=== PATIENT | female | born 1975 | race Caucasian/White ===

== ENCOUNTER 2016-12-26 12:12 | Inpatient (IN) ==
[2016-12-26] MEDS ORDERED: 0.9 % Sodium Chloride 1,000 ML IVC ONE ×3 (12:46→17:44)
[2016-12-26] MEDS ORDERED: Ondansetron 4 MG/2 ML VIAL IVP ONE (12:48)
[2016-12-26 13:01] LABS: Hematocrit 41.8 % (35.3-44.9); Hemoglobin 13.2 g/dL (11.5-15.4); Mean Corpuscular HGB Conc 31.6 g/dL (31.6-35.5); Mean Corpuscular Hemoglobin 28.4 pg (28.0-33.3); Mean Corpuscular Volume 90.1 fL (83.0-100.0); Mean Platelet Volume 10.1 fL (9.4-12.4); Platelet Count 237 K/mcL (140-400); Red Blood Count 4.64 M/mcL (3.82-4.97); Red Cell Distribution Width 15.3 % (11.5-14.5)
--- NOTE | 2016-12-26 13:15 | Emergency Department Note ---
Disposition Clinical Impression: Lactate blood increase Abdominal pain Qualifiers: Abdominal location: generalized Qualified Code(s): R10.84 - Generalized abdominal pain Vomiting Qualifiers: Vomiting type: unspecified Vomiting Intractability: non-intractable Nausea presence: with nausea Qualified Code(s): R11.2 - Nausea with vomiting, unspecified Disposition: Admitted As Inpatient Nausea/Vomiting/Diarrhea HPI - General Chief complaint: ED Nausea/Vomiting/Diarrhea Stated complaint: vomiting/dehydration Time Seen by Provider: 12/26/16 12:17 Source: EMS Limitations: no limitations Nursing Notes Reviewed: Yes Vital Signs Reviewed: Yes - History of Present Illness HPI Narrative: Patient has a history of [place] - is confined to bed presents with 1-1/2 weeks of vomiting and diarrhea and generalized abdominal pain which is a pressure sensation and it is constant. Does have urinary frequency but no dysuria. Temperature yesterday 101.9 degrees. No vaginal bleeding or discharge , blood in the urine or stool. Mild cough. No blurred vision or rhinorrhea or sneezing and does have generalized numbness and pain to the extremities but this is not new. No skin rash or bruising of the skin. No new pain or numbness of extremities. Social history: No smoking - Related Data Home Medications Medication Instructions Recorded Confirmed Pregabalin [Lyrica] 150 mg PO TID 01/03/16 12/26/16 Quetiapine Fumarate [Seroquel] 600 mg PO HS 01/03/16 12/26/16 Umeclidinium [place] [Incruse 1 puff IH DAILY 01/05/16 12/26/16 Ellipta] [place] Carbonate 600 mg PO TID 01/17/16 12/26/16 Atorvastatin [Lipitor] 40 mg PO HS 12/26/16 12/26/16 BuPROPion XL (24 HR) [Wellbutrin 450 mg PO DAILY 12/26/16 12/26/16 XL] Budesonide/Formoterol 160/4.5 2 puff IH BIDR 12/26/16 12/26/16 [Symbicort 160/4.5] Buspirone HCl [Buspar] 15 mg PO QID 12/26/16 12/26/16 Furosemide [Lasix] 20 mg PO DAILY 12/26/16 12/26/16 Gentamicin Sulfate 1 drop LEFT EYE Q4H 12/26/16 Ipratropium/Albuterol Sulfate 1 puff IH QID 12/26/16 12/26/16 [Combivent Respimat Inhal [place]] Mycophenolate Mofetil [Cellcept] 1,000 mg PO BID 12/26/16 12/26/16 Nystatin POWDER [Nystop] 1 appl TP BID 12/26/16 12/26/16 lamoTRIgine [Lamictal] 100 mg PO QAM 12/26/16 12/26/16 lamoTRIgine [Lamictal] 200 mg PO HS 12/26/16 12/26/16 Previous Rx's Medication Instructions Recorded Ranitidine HCl [Zantac] 150 mg PO BID #60 tablet 01/06/16 HYDROcodone/Acet 10/325 mg [[place] 1 tab PO Q6HR PRN #240 tablet 01/19/16 10-325 mg] Allergies Allergy/AdvReac Type Severity Reaction Status Date / Time cephalexin [From Keflex] Allergy Hives Verified 01/03/16 15:45 divalproex sodium Allergy Hives Verified 01/03/16 15:45 [From Depakote] ibuprofen Allergy Hives Verified 01/03/16 15:45 Review of Systems: Constitutional: No fever Vision: No blurred vision ENT: No rhinorrhea Respiratory: + cough Allergic: No allergies : No blood in urine GI: No blood in stool Hematologic: No bruising Dermatologic: No skin rash Musculoskeletal: No new pain in the extremities Neuro: No new numbness of the extremities Past Medical History - Past Medical History Medical history: Reports: COPD, myocardial infarction, other Surgical history: Reports: Psychiatric history: Reports: anxiety, bipolar, depression 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 EYES: PERRL, no scleral icterus. NOSE: The nose is normal in appearance without rhinorrhea RESP: Normal chest excursion with respiration; breath sounds clear and equal bilaterally; no wheezes, rhonchi, or rales CARD: Regular rhythm, without murmurs, rub or gallop ABD: Non-distended; there is mild generalized abdominal discomfort, abdomen is normal appearance, the entire abdomen is soft,without rigidity, rebound or guarding SKIN: Normal for age and race; warm and dry; no apparent lesions Back: No sacral decubiti - General Limitations: no limitations General appearance: alert, in no apparent distress Course Vital Signs Temperature 98.4 F 12/26/16 12:33 Pulse Rate 76 12/26/16 12:33 Respiratory Rate 18 12/26/16 12:33 Blood Pressure 142/64 12/26/16 12:33 O2 Sat by Pulse Oximetry 93 12/26/16 12:33 Temperature 98.1 F 12/26/16 19:10 Pulse Rate 76 12/26/16 19:10 Respiratory Rate 18 12/26/16 21:20 Blood Pressure 114/69 12/26/16 19:10 O2 Sat by Pulse Oximetry 98 12/26/16 21:20 Oxygen Delivery Oxygen Delivery Room Air Nausea/Vomiting/Diarrhea - MDM Narrative Medical decision making narrative: Labs including LFTs and lipase, CT scan, IV fluids, IV Zofran, lactate level. Results pending. 1317 I did review the patient's test results. Lactate significantly elevated. The patient is chronically debilitated and in addition does have a temperature 101.9 degrees so the concern is for possible sepsis. The patient started on Zosyn and vancomycin. She does not have septic shock. She is not hypotensive. I did speak with the hospitalist Dr. Almeida who accepts the patient for admission. 1535 - Lab Data Result diagrams: 12/26/16 12:54 12/26/16 12:54 Lab Results 12/26/16 12/26/16 12/26/16 Range/Units 12:54 12:54 12:54 WBC 9.8 (4.3-11.1) K/mcL RBC 4.64 (3.82-4.97) M/mcL Hgb 13.2 (11.5-15.4) g/dL Hct 41.8 (35.3-44.9) % MCV 90.1 (83.0-100.0) fL MCH 28.4 (28.0-33.3) pg MCHC 31.6 (31.6-35.5) g/dL RDW 15.3 H (11.5-14.5) % Plt Count 237 (140-400) K/mcL MPV 10.1 (9.4-12.4) fL Sodium 144 (136-145) mEq/L Potassium 3.2 L (3.5-4.5) mEq/L Chloride 107 (98-109) mEq/L Carbon Dioxide 25 (19-29) mEq/L BUN 2 L (7-20) mg/dL Creatinine 0.59 (0.57-1.11) mg/dL Est GFR ( Amer) > 60 (> 60) Est GFR (Non-Af Amer) > 60 (> 60) BUN/Creatinine Ratio 3 L (6-26) Glucose 92 (70-99) mg/dL Calculated Osmolality 294 (280-300) Lactic Acid 4.0 H* (0.5-2.2) mmol/L Calcium 9.6 (8.6-10.8) mg/dL Total Bilirubin 0.5 (0.2-1.2) mg/dL Direct Bilirubin 0.3 (0.0-0.5) mg/dL Indirect Bilirubin 0.2 (0.0-1.2) mg/dL AST 33 (5-34) Units/L ALT 18 (0-55) Units/L Alkaline Phosphatase 127 H (38-126) Units/L Creatine Kinase 16 L (29-168) Units/L Serum Total Protein 5.5 L (6.0-8.3) g/dL Albumin 3.0 L (3.5-5.0) g/dL Globulin 2.5 (2.4-3.5) g/dL Albumin/Globulin Ratio 1.2 (1.1-2.2) Lipase 7 L (8-78) Units/L
[2016-12-26 13:17] LABS: BUN/Creatinine Ratio 3 (6-26); Calcium 9.6 mg/dL (8.6-10.8); Carbon Dioxide 25 mEq/L (19-29); Chloride 107 mEq/L (98-109); Glucose 92 mg/dL (70-99); Osmolality,Calculated 294 (280-300); Potassium 3.2 mEq/L (3.5-4.5); Sodium 144 mEq/L (136-145); eGFR For African Americans > 60 (> 60); eGFR For Non-African Americans > 60 (> 60)
[2016-12-26 13:19] LABS: Blood Urea Nitrogen 2 mg/dL (7-20)
[2016-12-26 13:45] LABS: Alanine Aminotransferase 18 Units/L (0-55); Albumin/Globulin Ratio 1.2 (1.1-2.2); Alkaline Phosphatase 127 Units/L (38-126); Aspartate Amino Transferase 33 Units/L (5-34); Bilirubin,Direct 0.3 mg/dL (0.0-0.5); Bilirubin,Indirect 0.2 mg/dL (0.0-1.2); Bilirubin,Total 0.5 mg/dL (0.2-1.2); Globulin 2.5 g/dL (2.4-3.5); Lipase 7 Units/L (8-78); Total Protein 5.5 g/dL (6.0-8.3)
[2016-12-26] MEDS ORDERED: Potassium Chloride 20 MEQ, Lidocaine 1% 2 ML in D5% in Water 250 ML IVPB ONE (14:08)
[2016-12-26] MEDS ORDERED: Vancomycin 2,000 MG in D5% in Water 500 ML IVPB ONE (15:27)
[2016-12-26] MEDS ORDERED: Piperacillin/Tazobactam 4.5 GM in D5% in Water (Mini-Bag+) 100 ML IVPB ONE (15:27)
[2016-12-26 16:02] LABS: Creatine Kinase 16 Units/L (29-168)
[2016-12-26] MEDS ORDERED: Naloxone 0.4 MG/ML INJ IVP PRN (16:02)
--- NOTE | 2016-12-26 16:19 | Internal Med History&Physical ---
<Penelope Mcnamara Venkat - Last Filed: 12/26/16 16:39> Date of Encounter: 12/26/16 Time of Encounter: 16:17 Assessment and Plan (1) Lactic acidosis Current visit: Yes Status: Acute Lactic acid 4 in the ED, etiology unknown at this time. She does report subjective fever Tmax 101.8 at home. Afebrile in the ED no elevated white count. Does not appear acute or toxic. ABD CT with marked hepatic steatosis and moderate hepatomegaly. Vanco and Zosyn given in the ED. De-escalate to Vanco only. Has PICC in place since 04/2016 for IVIG treatments, remove PICC and reassess need for reinsertion before discharge. Follow cx's and narrow/de- escalate ATB as able. Blood, urine cx, stool for diff and CXR (2) Hypokalemia Current visit: No Status: Resolved K 3.2, replaced in ED. Monitor repeat CMP (3) Nonalcoholic hepatosteatosis Current visit: Yes Status: Acute ABD CT with marked hepatic steatosis and moderate hepatomegaly. Alkaline phosphatase minimally elevated, LFTs within normal limits. 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 Follows with [facility] but in the process of transferring care to Dr. Valdes. Last IVIG treatment 3 weeks ago. Remove possible infectious source. Re-evaluate need for replacement prior to discharge. Will need to ensure negative blood cx' s. Supportive care (5) Bipolar 1 disorder Current visit: No Status: Chronic Per history. Symptoms stable with current medications. Continue home regimen. (6) HLD (hyperlipidemia) Current visit: Yes Status: Acute Continue home statin Qualifiers: Hyperlipidemia type: pure hypercholesterolemia Qualified Code(s): E78.00 - Pure hypercholesterolemia, unspecified; E78.0 - Pure hypercholesterolemia (7) DVT prophylaxis Current visit: Yes Status: Acute Heparin Internal Medicine - H&P: HPI Chief complaint: abdominal pain Admitted From: Home Plans for Post Hospital Care: Home History of present illness: Ms. Richardson is a 41 year old female with PMH Guillain Leverett, CAD, hyperlipidemia who presented to [facility] on 12/26[facility]2016 with complaints of abdominal pain and nausea vomiting diarrhea and inability to tolerate by mouth. She was found to have lactic acid of 4 and was admitted for IV fluids and further workup and treatment. Information obtained from chart review and patient report. Patient reports she has been having intermittent abdominal pain with nausea vomiting diarrhea for the past week and a half. Says she is unable to keep anything down. She describes abdominal pain as a severe tightness into her entire abdomen nothing seems to make better or worse she is also had intermittent loose stool the past week and half as well. Had subjective fever of 101.8 yesterday at home. Last IVIG treatment was 3 weeks ago. She has had a PICC in place since 04/2016. No chest pain or shortness of breath. Past Med Surg Social Fam HX - Past Medical History Medical history: COPD, myocardial infarction, other Psychiatric history: anxiety, bipolar, depression - Past Surgical History Surgical History: - Social History Smoking Status: Former smoker Smokeless Tobacco Status: No Alcohol use: none Drug use: none - Family History Mother Adopted: No Living Status: Still Living Hx Family Cardiac Disorders: Yes (CHF) Hx Family Respiratory Disorders: Yes (COPD) Hx Family Cancer: Yes (Mothers father had lung and liver cancer) Hx Family GI Disorders: No Hx Family Endocrine Disorder: No Hx Family Neuromuscular Disorders: Yes (Benign nuerologial tremors) Hx Family Neurologic Disorders: No Hx Family HEENT Disorders: Yes (migraines) Hx Family Autoimmune Disorders: No Father Living Status: Hx Family Endocrine Disorder: Yes (DM) Internal Medicine - H&P: Meds Pregabalin [Lyrica] 150 mg PO TID 01/03/16 [History] Quetiapine Fumarate [Seroquel] 600 mg PO HS 01/03/16 [History] Umeclidinium [place] [Incruse Ellipta] 1 puff IH DAILY 01/05/16 [History] Ranitidine HCl [Zantac] 150 mg PO BID #60 tablet 01/06/16 [Rx] [place] Carbonate 600 mg PO TID 01/17/16 [History] HYDROcodone/Acet 10/325 mg [[place] 10-325 mg] 1 tab PO Q6HR PRN #240 tablet 01/18 [Rx] Atorvastatin [Lipitor] 40 mg PO HS 12/26/16 [History] BuPROPion XL (24 HR) [Wellbutrin XL] 450 mg PO DAILY 12/26/16 [History] Budesonide/Formoterol 160/4.5 [Symbicort 160/4.5] 2 puff IH BIDR 12/26/16 [ History] Buspirone HCl [Buspar] 15 mg PO QID 12/26/16 [History] Furosemide [Lasix] 20 mg PO DAILY 12/26/16 [History] Gentamicin Sulfate 1 drop LEFT EYE Q4H 12/26/16 [History] Ipratropium/Albuterol Sulfate [Combivent Respimat Inhal [place]] 1 puff IH QID [History] Mycophenolate Mofetil [Cellcept] 1,000 mg PO BID 12/26/16 [History] Nystatin POWDER [Nystop] 1 appl TP BID 12/26/16 [History] lamoTRIgine [Lamictal] 100 mg PO QAM 12/26/16 [History] lamoTRIgine [Lamictal] 200 mg PO HS 12/26/16 [History] Allergies cephalexin [From Keflex] Allergy (Verified 01/03/16 15:45) Hives divalproex sodium [From Depakote] Allergy (Verified 01/03/16 15:45) Hives ibuprofen Allergy (Verified 01/03/16 15:45) Hives All Systems PM: A 10-system review of systems was performed and is negative for pertinent findings except as documented above in the HPI. - Constitutional Constitutional: fever(s), no chills, no night sweats - EENT Eyes: no change in vision, no discharge, no pain, no photophobia Ears: no ear discharge, no ear pain, no tinnitus Nose, mouth and throat: no dysphagia, no nasal discharge, no neck pain, no sore throat - Cardiovascular Cardiovascular ROS IM: no chest pain, no diaphoresis, no dyspnea, no lightheadedness, no palpitations, no syncope - Respiratory Respiratory: no cough, no dyspnea, no wheezing, no excessive phlegm production - Gastrointestinal Gastrointestinal: abdominal pain, no diarrhea, no hematemesis, no hematochezia, no melena, no nausea, no vomiting - Genitourinary Genitourinary: no change in urinary stream, no dysuria, no flank pain, no hematuria - Musculoskeletal Musculoskeletal ROS IM: joint swelling, limited range of motion, no numbness, no tingling - Integumentary Integumentary IM: no rash, no unusual bruising - Neurological Neurological ROS: no confusion, no convulsions, no focal weakness, no numbness, no tingling, no tremor(s) Additional comments: Does not ambulate, wheelchair or bedbound - Hematologic/Lymphatic Hematologic/Lymphatic: no easy bruising - Constitutional Vitals: Temp Pulse Resp BP Pulse Ox 98.4 F 74 18 117/66 98 12/26/16 12:33 12/26/16 15:26 12/26/16 15:26 12/26/16 15:26 12/26/16 15:26 General appearance: Present: A&O X 3 - Head Head exam: Present: atraumatic, normocephalic - Eye Eye exam: Present: PERRL, conjuntiva pink, sclera anicteric Pupils: Present: PERRL - Neck Neck exam general surgery: Present: supple, trachea midline. Absent: lymphadenopathy - Respiratory Respiratory exam: Present: CTAB. Absent: accessory muscle use, rales, rhonchi, wheezes - Cardiovascular Cardiovascular exam: Present: RRR, +S1, +S2. Absent: diastolic murmur, gallop, rubs, systolic murmur - GI/Abdominal GI/Abdominal exam: Present: normal bowel sounds, soft, no peritoneal signs. Absent: distended, tenderness Additional comments: mild ABD tenderness - Extremities Exam Extremities exam: Present: pedal edema, warm, radial pulses palpable and symetrical. Absent: calf tenderness, cyanotic Additional comments: mild erythema, warmth and tenderness - Neurological Exam Neurological exam: Present: CN II-XII intact, oriented X3, no focal deficits. Absent: pronater drift, facial droop, speech deficit - Skin Skin exam: Present: dry, intact Internal Med - H&P Results - Labs CBC & Chem 7: 12/26/16 12:54 12/26/16 12:54 <Asif Almeida - Last Filed: 12/26/16 18:15> Date of Encounter: 12/26/16 Time of Encounter: 17:30 Internal Medicine - H&P: HPI History of present illness: Ms. Richardson is a 41 year old female All Systems PM: A 10-system review of systems was performed and is negative for pertinent findings except as documented above in the HPI. - Constitutional Vitals: Temp Pulse Resp BP Pulse Ox 98.4 F 74 16 123/72 98 12/26/16 12:33 12/26/16 15:26 12/26/16 16:59 12/26/16 16:59 12/26/16 15:26 Internal Med - H&P Results - Labs CBC & Chem 7: 12/26/16 12:54 12/26/16 12:54 - Impressions ITS Impressions Chest X-Ray 12/26/16 16:50 IMPRESSION: No acute abnormality D/ / Abner Taylor / Abner Taylor Interpreting Provider: Abner Taylor - Attending Attestation I examined this patient and my medical decision-making was reviewed with the nurse practitioner. I agree with the documented history of present illness, review of systems, past medical, surgical social and family histories and examination findings, disposition and treatment plan as described above except to any changes set forth below. 41-year-old female patient with history of Guillain-Leverett who has been receiving IVIG through the left upper extremity PICC line presented to the ER with complaints of fever, nausea and vomiting. She had an episode of fever with temperature 101.8 yesterday. She has been having episodes of fever for several weeks now intermittently. Also complains of abdominal bloating and distention. No cough or shortness of breath. No dysuria. On examination, patient is awake and alert. Heart sounds and lung sounds are within normal limits. Abdomen is soft, nontender. Blood work shows elevated lactic acid levels. CT of the abdomen and pelvis shows steatohepatitis without any ascites. WBC count is normal. Chest x-ray does not show any infiltrate. Fever: Unclear etiology. Patient's temperature has been normal here. Given that she has an elevated lactate, with the presence of a PICC line, there is a risk of line infection. Will treat with empiric antibiotics while awaiting cultures. Lactic acidosis: Likely could be related to dehydration with nausea and vomiting in the presence of steatohepatitis. We will trend. IV hydration. 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 We will check levels. Continue CellCept. Bipolar disorder: Continue lithium. Hypokalemia: We will replace.
[2016-12-26] MEDS: *HR* HYDROcodone/Acet 10/325 mg TABLET PO PRN (18:04)
[2016-12-26] MEDS: Ondansetron 4 MG/2 ML VIAL IVP PRN (18:08)
[2016-12-26] MEDS: 0.9 % Sodium Chloride 1,000 ML IVC SCH (18:11)
[2016-12-26] MEDS: IPRATROPIUM IH SCH (18:12)
[2016-12-26] MEDS: ALBUTEROL SULFATE IH SCH (18:12)
[2016-12-26] MEDS ORDERED: *HR* Morphine 2 MG/ML SYRINGE IVP ONE (18:59)
[2016-12-26] MEDS: Budesonide/Formoterol 160/4.5 MDI IH SCH (21:18)
[2016-12-26 21:20] LABS: Bilirubin,Urine Negative (Negative); Blood,Urine Negative (Negative); Clarity,Urine Clear (Clear); Color,Urine Yellow (Yellow); Glucose,Urine (UA) Normal (Normal); Ketones,Urine Negative (Negative); Leukocyte Esterase,Urine Negative (Negative); Nitrite,Urine Negative (Negative); Protein,Urine Negative (Neg-Trace); Specific Gravity,Urine 1.009 (1.010-1.025); Urobilinogen,Urine Normal (Normal)
[2016-12-26] MEDS: Pregabalin 75 MG CAPSULE PO SCH ×2 (21:33→21:50)
[2016-12-26] MEDS: lamoTRIgine 100 MG TABLET PO SCH (21:34)
[2016-12-26] MEDS: Lithium Carbonate 300 MG CAPSULE PO SCH (21:35)
[2016-12-26] MEDS: *HR* Heparin 5,000 UNIT/ML VIAL SQ SCH (21:37)
[2016-12-26] MEDS: Nystatin POWDER 30 GM BOTTLE TP SCH (21:43)
[2016-12-26] MEDS: Melatonin 3 MG TABLET PO SCH (22:31)
[2016-12-27] MEDS: IPRATROPIUM IH SCH ×2 (00:06→05:08)
[2016-12-27] MEDS: ALBUTEROL SULFATE IH SCH ×2 (00:06→05:08)
[2016-12-27] MEDS: 0.9 % Sodium Chloride 1,000 ML IVC SCH ×3 (02:58→17:36)
[2016-12-27 04:17] LABS: Basophils % 0.5 %; Eosinophils # 0.2 K/mcL (0.0-0.6); Eosinophils % 2.6 %; Hematocrit 35.7 % (35.3-44.9); Immature Granulocytes % 0.3 % (0-4); Lymphocytes # 2.8 K/mcL (0.6-4.6); Lymphocytes % 35.2 %; Mean Corpuscular HGB Conc 31.7 g/dL (31.6-35.5); Mean Corpuscular Volume 91.5 fL (83.0-100.0); Mean Platelet Volume 10.4 fL (9.4-12.4); Monocytes # 0.7 K/mcL (0.0-1.3); Monocytes % 9.3 %; Neutrophils # 4.1 K/mcL (1.6-8.9); Platelet Count 200 K/mcL (140-400); Red Cell Distribution Width 15.4 % (11.5-14.5); Segmented Neutrophils % 52.1 %
[2016-12-27 04:18] LABS: Hemoglobin 11.3 g/dL (11.5-15.4)
[2016-12-27 04:32] LABS: Alanine Aminotransferase 20 Units/L (0-55); Albumin 2.5 g/dL (3.5-5.0); Albumin/Globulin Ratio 1.3 (1.1-2.2); Alkaline Phosphatase 105 Units/L (38-126); Aspartate Amino Transferase 41 Units/L (5-34); BUN/Creatinine Ratio 4 (6-26); Bilirubin,Total 0.5 mg/dL (0.2-1.2); Calcium 8.5 mg/dL (8.6-10.8); Carbon Dioxide 20 mEq/L (19-29); Chloride 113 mEq/L (98-109); Glucose 81 mg/dL (70-99); Osmolality,Calculated 291 (280-300); Potassium 3.5 mEq/L (3.5-4.5); Sodium 143 mEq/L (136-145); Total Protein 4.5 g/dL (6.0-8.3); eGFR For African Americans > 60 (> 60); eGFR For Non-African Americans > 60 (> 60)
[2016-12-27 04:33] LABS: Blood Urea Nitrogen 2 mg/dL (7-20)
[2016-12-27] MEDS: *HR* Heparin 5,000 UNIT/ML VIAL SQ SCH ×3 (05:54→21:10)
[2016-12-27] MEDS: Vancomycin 1,750 MG in D5% in Water 500 ML IVPB SCH ×2 (05:55→17:36)
[2016-12-27] MEDS: Ondansetron 4 MG/2 ML VIAL IVP PRN ×2 (05:59→16:20)
[2016-12-27] MEDS: *HR* HYDROcodone/Acet 10/325 mg TABLET PO PRN ×3 (06:02→20:18)
[2016-12-27] MEDS: BuPROPion XL (24 HR) 150 MG TABLET PO SCH (07:57)
[2016-12-27] MEDS: Furosemide 20 MG TABLET PO SCH (07:57)
[2016-12-27] MEDS: Pregabalin 75 MG CAPSULE PO SCH ×3 (07:57→20:16)
[2016-12-27] MEDS: Lithium Carbonate 300 MG CAPSULE PO SCH ×3 (07:58→20:16)
[2016-12-27] MEDS: Nystatin POWDER 30 GM BOTTLE TP SCH ×2 (07:58→20:23)
[2016-12-27] MEDS: lamoTRIgine 100 MG TABLET PO SCH ×2 (07:58→20:17)
[2016-12-27] MEDS: Budesonide/Formoterol 160/4.5 MDI IH SCH ×2 (11:05→22:51)
[2016-12-27 11:55] LABS: Hepatitis A Antibody IgM Nonreactive (Nonreactive); Hepatitis B Core IgM Nonreactive (Nonreactive); Hepatitis B Surface Antigen Nonreactive (Nonreactive); Hepatitis C Virus Antibody Nonreactive (Nonreactive)
[2016-12-27] MEDS: Ipratropium/Albuterol Neb 3 ML IH SCH ×2 (15:30→22:49)
--- NOTE | 2016-12-27 15:44 | Electrocardiograph Report ---
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
--- NOTE | 2016-12-27 15:45 | Electrocardiograph Report ---
[address] [address] Test Date: 2016-12-26 Pat Name: Ila Richardson Department: 115 Room: 3A43 Gender: F Nurse Practitioner Physicians Assistant: [id number] : 1975 Requested By: Kassandra Hall Order Number: [id number] Reading MD: Gisela Piedra Measurements Intervals [place] Rate: 74 P: 63 CA: 137 QRS: -25 QRSD: 103 T: 142 QT: 437 QTc: 464 Interpretive Statements SINUS RHYTHM BORDERLINE LEFT AXIS DEVIATION MODERATE T-WAVE ABNORMALITY, CONSIDER ANTEROLATERAL ISCHEMIA SIGNIFICANT BASELINE ARTIFACT Electronically Signed On 12-27-2016 15:44:01 EDT by Gisela Piedra
--- NOTE | 2016-12-27 18:35 | Internal Med Progress Note ---
Date of Encounter: 12/27/16 Time of Encounter: 18:32 - Assessment and plan (1) Fever and chills Current Visit: Yes Status: Acute (2) COPD (chronic obstructive pulmonary disease) Current Visit: No Status: Chronic Qualifiers: COPD type: chronic bronchitis Chronic bronchitis type: unspecified Qualified Code(s): J42 - Unspecified chronic bronchitis (3) Abdominal pain Current Visit: Yes Status: Acute Qualifiers: Abdominal location: generalized Qualified Code(s): R10.84 - Generalized abdominal pain (4) Lactic acidosis Current Visit: Yes Status: Acute (5) Nonalcoholic hepatosteatosis Current Visit: Yes Status: Acute (6) DVT prophylaxis Current Visit: Yes Status: Acute (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 Richardson is a 41 year old female with PMH Guillain B[place], CAD, hyperlipidemia who presented to [facility] on 12/26/2016 with complaints of abdominal pain and nausea vomiting diarrhea and inability to tolerate by mouth. She has Gullian Bingham Syndrome and she gets IV IgG on regular basis. Last time she got it is almost 4 weeks ago. She has a PICC line in the concern is that she is becoming septic with PICC line. Cultures are pending and she has already been started on IV vancomycin. Otherwise her white count is okay and her examination is quite benign today. She has continuous numbness in her lower extremity as expected. Breathing grullon she is okay and will resume her home medication for her blood pressure COPD. - Constitutional Vitals: Temp Pulse Resp BP Pulse Ox 97.3 F L 78 16 94/66 96 12/27/16 16:43 12/27/16 16:43 12/27/16 16:43 12/27/16 16:43 12/27/16 16:43 General appearance: Present: A&O X 3 - Head Head exam: Present: atraumatic, normocephalic - Eye Eye exam: Present: PERRL, conjuntiva pink, sclera anicteric Pupils: Present: PERRL - Neck Neck exam general surgery: Present: supple, trachea midline. Absent: lymphadenopathy - Respiratory Respiratory exam: Present: CTAB. Absent: accessory muscle use, rales, rhonchi, wheezes - Cardiovascular Cardiovascular exam: Present: RRR, +S1, +S2. Absent: diastolic murmur, gallop, rubs, systolic murmur - GI/Abdominal GI/Abdominal exam: Present: normal bowel sounds, soft, no peritoneal signs. Absent: distended, tenderness - Extremities Exam Extremities exam: Present: warm, radial pulses palpable and symetrical. Absent : calf tenderness, cyanotic, pedal edema - Neurological Exam Neurological exam: Present: CN II-XII intact, oriented X3, no focal deficits. Absent: pronater drift, facial droop, speech deficit - Skin Skin exam: Present: dry, intact Internal Medicine: Result - Labs CBC & Chem 7: 12/27/16 03:56 12/27/16 03:56 Labs: Short CBC 12/27/16 Range/Units 03:56 WBC 7.8 (4.3-11.1) K/mcL Hgb 11.3 L D (11.5-15.4) g/dL Hct 35.7 (35.3-44.9) % Plt Count 200 (140-400) K/mcL Neutrophils # 4.1 (1.6-8.9) K/mcL BMP 12/27/16 03:56 Sodium 143 Potassium 3.5 Chloride 113 H Carbon Dioxide 20 BUN 2 L Creatinine 0.55 L Glucose 81 Calcium 8.5 L Cardiac Enzymes 12/26/16 12/27/16 12/27/16 Range/Units 21:45 03:56 09:02 Troponin I 0.00 0.01 0.00 (0-0.03) ng/mL Liver Function 12/27/16 Range/Units 03:56 Total Bilirubin 0.5 (0.2-1.2) mg/dL AST 41 H (5-34) Units/L ALT 20 (0-55) Units/L Alkaline Phosphatase 105 (38-126) Units/L Albumin 2.5 L (3.5-5.0) g/dL Urine 12/26/16 Range/Units 21:10 Urine Color Yellow (Yellow) Urine Clarity Clear (Clear) Urine pH 7.0 (5.0-8.0) pH Units Ur Specific [place] 1.009 L (1.010-1.025) Urine Protein Negative (Neg-Trace) mg/dL Urine Glucose (UA) Normal (Normal) mg/dL Consult Discharge Plan - Plan Referrals: Heidi Bradley CNP [Primary Care Provider] -
[2016-12-27] MEDS ORDERED: Potassium Chloride Elixir 20 MEQ/15 ML UDC PO ONE (18:36)
[2016-12-27] MEDS: Melatonin 3 MG TABLET PO SCH (20:19)
[2016-12-27] MEDS ORDERED: Melatonin 3 MG TABLET PO SCH (21:00)
[2016-12-28] MEDS: 0.9 % Sodium Chloride 1,000 ML IVC SCH ×3 (00:27→13:56)
[2016-12-28] MEDS: Ipratropium/Albuterol Neb 3 ML IH SCH ×4 (04:46→22:19)
[2016-12-28 04:53] LABS: Basophils % 0.3 %; Eosinophils # 0.2 K/mcL (0.0-0.6); Hemoglobin 11.4 g/dL (11.5-15.4); Immature Granulocytes % 0.5 % (0-4); Lymphocytes # 2.5 K/mcL (0.6-4.6); Lymphocytes % 34.3 %; Mean Corpuscular HGB Conc 30.8 g/dL (31.6-35.5); Mean Corpuscular Hemoglobin 28.4 pg (28.0-33.3); Mean Corpuscular Volume 92.3 fL (83.0-100.0); Mean Platelet Volume 9.8 fL (9.4-12.4); Monocytes # 0.7 K/mcL (0.0-1.3); Monocytes % 10.1 %; Neutrophils # 3.8 K/mcL (1.6-8.9); Platelet Count 181 K/mcL (140-400); Red Blood Count 4.01 M/mcL (3.82-4.97); Red Cell Distribution Width 15.5 % (11.5-14.5); Segmented Neutrophils % 51.8 %
[2016-12-28 05:08] LABS: Alanine Aminotransferase 22 Units/L (0-55); Albumin 2.5 g/dL (3.5-5.0); Albumin/Globulin Ratio 1.1 (1.1-2.2); Alkaline Phosphatase 118 Units/L (38-126); Aspartate Amino Transferase 36 Units/L (5-34); BUN/Creatinine Ratio 4 (6-26); Bilirubin,Total 0.5 mg/dL (0.2-1.2); Calcium 8.6 mg/dL (8.6-10.8); Carbon Dioxide 21 mEq/L (19-29); Chloride 114 mEq/L (98-109); Globulin 2.3 g/dL (2.4-3.5); Glucose 99 mg/dL (70-99); Osmolality,Calculated 293 (280-300); Potassium 3.8 mEq/L (3.5-4.5); Sodium 143 mEq/L (136-145); Total Protein 4.8 g/dL (6.0-8.3); eGFR For African Americans > 60 (> 60); eGFR For Non-African Americans > 60 (> 60)
[2016-12-28 05:09] LABS: Blood Urea Nitrogen 3 mg/dL (7-20)
[2016-12-28] MEDS: *HR* HYDROcodone/Acet 10/325 mg TABLET PO PRN ×3 (05:47→21:17)
[2016-12-28] MEDS: *HR* Heparin 5,000 UNIT/ML VIAL SQ SCH ×3 (05:48→21:19)
[2016-12-28] MEDS: Vancomycin 1,750 MG in D5% in Water 500 ML IVPB SCH ×2 (05:49→17:44)
[2016-12-28] MEDS: lamoTRIgine 100 MG TABLET PO SCH ×2 (08:12→21:16)
[2016-12-28] MEDS: Furosemide 20 MG TABLET PO SCH (08:12)
[2016-12-28] MEDS: Ondansetron 4 MG/2 ML VIAL IVP PRN ×2 (08:12→21:19)
[2016-12-28] MEDS: Lithium Carbonate 300 MG CAPSULE PO SCH ×3 (08:13→21:17)
[2016-12-28] MEDS: Pregabalin 75 MG CAPSULE PO SCH ×3 (08:13→21:17)
[2016-12-28] MEDS: BuPROPion XL (24 HR) 150 MG TABLET PO SCH (08:13)
[2016-12-28] MEDS: Nystatin POWDER 30 GM BOTTLE TP SCH ×2 (08:14→21:19)
[2016-12-28] MEDS: Budesonide/Formoterol 160/4.5 MDI IH SCH ×2 (09:38→22:20)
--- NOTE | 2016-12-28 17:27 | Internal Med Progress Note ---
Date of Encounter: 12/28/16 Time of Encounter: 17:26 - Assessment and plan (1) Fever and chills Current Visit: Yes Status: Acute (2) COPD (chronic obstructive pulmonary disease) Current Visit: No Status: Chronic Qualifiers: COPD type: chronic bronchitis Chronic bronchitis type: unspecified Qualified Code(s): J42 - Unspecified chronic bronchitis (3) Abdominal pain Current Visit: Yes Status: Acute Qualifiers: Abdominal location: generalized Qualified Code(s): R10.84 - Generalized abdominal pain (4) Lactic acidosis Current Visit: Yes Status: Acute (5) Nonalcoholic hepatosteatosis Current Visit: Yes Status: Acute (6) DVT prophylaxis Current Visit: Yes Status: Acute (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 Richardson is a 41 year old female with PMH Guillain [place], CAD, hyperlipidemia who presented to [facility] on 12/26/2016 with complaints of abdominal pain and nausea vomiting diarrhea and inability to tolerate by mouth. 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 Last time she got it is almost 4 weeks ago. She has a PICC line in the concern is that she is becoming septic with PICC line. Cultures are pending and she has already been started on IV vancomycin. Otherwise her white count is okay and her examination is quite benign today. She has continuous numbness in her lower extremity as expected. Breathing grullon she is okay and will resume her home medication for her blood pressure COPD. 12/28 no complaints seem seem hemodynamically stable potassium supplemented to 1 unit blood will be given. Nurse asked to premedicated with Benadryl and Phenergan - Constitutional Vitals: Temp Pulse Resp BP Pulse Ox 98.0 F 84 18 95/62 98 12/28/16 15:16 12/28/16 15:16 12/28/16 15:16 12/28/16 15:16 12/28/16 15:16 General appearance: Present: A&O X 3 - Head Head exam: Present: atraumatic, normocephalic - Eye Eye exam: Present: PERRL, conjuntiva pink, sclera anicteric Pupils: Present: PERRL - Neck Neck exam general surgery: Present: supple, trachea midline. Absent: lymphadenopathy - Respiratory Respiratory exam: Present: CTAB. Absent: accessory muscle use, rales, rhonchi, wheezes - Cardiovascular Cardiovascular exam: Present: RRR, +S1, +S2. Absent: diastolic murmur, gallop, rubs, systolic murmur - GI/Abdominal GI/Abdominal exam: Present: normal bowel sounds, soft, no peritoneal signs. Absent: distended, tenderness - Extremities Exam Extremities exam: Present: warm, radial pulses palpable and symetrical. Absent : calf tenderness, cyanotic, pedal edema - Neurological Exam Neurological exam: Present: CN II-XII intact, oriented X3, no focal deficits. Absent: pronater drift, facial droop, speech deficit - Skin Skin exam: Present: dry, intact Internal Medicine: Result - Labs CBC & Chem 7: 12/28/16 03:45 12/28/16 03:45 Labs: Short CBC 12/28/16 Range/Units 03:45 WBC 7.3 (4.3-11.1) K/mcL Hgb 11.4 L (11.5-15.4) g/dL Hct 37.0 (35.3-44.9) % Plt Count 181 (140-400) K/mcL Neutrophils # 3.8 (1.6-8.9) K/mcL BMP 12/28/16 03:45 Sodium 143 Potassium 3.8 Chloride 114 H Carbon Dioxide 21 BUN 3 L Creatinine 0.71 Glucose 99 Calcium 8.6 Liver Function 12/28/16 Range/Units 03:45 Total Bilirubin 0.5 (0.2-1.2) mg/dL AST 36 H (5-34) Units/L ALT 22 (0-55) Units/L Alkaline Phosphatase 118 (38-126) Units/L Albumin 2.5 L (3.5-5.0) g/dL Consult Discharge Plan - Plan Instructions: Chronic Obstructive Pulmonary Disease (DC) Referrals: Heidi Bradley CNP [Primary Care Provider] -
[2016-12-28] MEDS: Acetaminophen 325 MG TABLET PO PRN (18:06)
[2016-12-28] MEDS: Melatonin 3 MG TABLET PO SCH (21:16)
[2016-12-29] MEDS ORDERED: Ondansetron 4 MG/2 ML VIAL IVP ONE (01:41)
[2016-12-29 04:39] LABS: Basophils % 0.2 %; Eosinophils # 0.2 K/mcL (0.0-0.6); Eosinophils % 2.1 %; Hematocrit 38.8 % (35.3-44.9); Hemoglobin 12.2 g/dL (11.5-15.4); Immature Granulocytes % 0.2 % (0-4); Lymphocytes # 1.1 K/mcL (0.6-4.6); Lymphocytes % 12.5 %; Mean Corpuscular HGB Conc 31.4 g/dL (31.6-35.5); Mean Corpuscular Volume 92.2 fL (83.0-100.0); Mean Platelet Volume 10.1 fL (9.4-12.4); Monocytes # 0.8 K/mcL (0.0-1.3); Monocytes % 9.8 %; Neutrophils # 6.4 K/mcL (1.6-8.9); Platelet Count 203 K/mcL (140-400); Red Blood Count 4.21 M/mcL (3.82-4.97); Red Cell Distribution Width 15.5 % (11.5-14.5); Segmented Neutrophils % 75.2 %
[2016-12-29] MEDS: Ipratropium/Albuterol Neb 3 ML IH SCH ×2 (04:41→09:52)
[2016-12-29 04:54] LABS: Alanine Aminotransferase 26 Units/L (0-55); Albumin 2.7 g/dL (3.5-5.0); Albumin/Globulin Ratio 1.1 (1.1-2.2); Alkaline Phosphatase 124 Units/L (38-126); Aspartate Amino Transferase 39 Units/L (5-34); BUN/Creatinine Ratio 6 (6-26); Bilirubin,Total 0.6 mg/dL (0.2-1.2); Calcium 9.6 mg/dL (8.6-10.8); Carbon Dioxide 24 mEq/L (19-29); Chloride 114 mEq/L (98-109); Globulin 2.4 g/dL (2.4-3.5); Glucose 107 mg/dL (70-99); Osmolality,Calculated 299 (280-300); Potassium 4.4 mEq/L (3.5-4.5); Sodium 146 mEq/L (136-145); Total Protein 5.1 g/dL (6.0-8.3); eGFR For African Americans > 60 (> 60); eGFR For Non-African Americans > 60 (> 60)
[2016-12-29 04:55] LABS: Blood Urea Nitrogen 4 mg/dL (7-20)
[2016-12-29] MEDS: 0.9 % Sodium Chloride 1,000 ML IVC SCH (04:56)
[2016-12-29] MEDS: Vancomycin 1,750 MG in D5% in Water 500 ML IVPB SCH (04:57)
[2016-12-29] MEDS: *HR* Heparin 5,000 UNIT/ML VIAL SQ SCH ×2 (04:57→14:14)
[2016-12-29 07:36] VITALS: BP 109/73
[2016-12-29] MEDS: Pregabalin 75 MG CAPSULE PO SCH ×2 (08:19→14:13)
[2016-12-29] MEDS: BuPROPion XL (24 HR) 150 MG TABLET PO SCH (08:20)
[2016-12-29] MEDS: Lithium Carbonate 300 MG CAPSULE PO SCH ×2 (08:20→14:14)
[2016-12-29] MEDS: Furosemide 20 MG TABLET PO SCH (08:21)
[2016-12-29] MEDS: *HR* HYDROcodone/Acet 10/325 mg TABLET PO PRN (08:24)
[2016-12-29] MEDS: lamoTRIgine 100 MG TABLET PO SCH (08:25)
[2016-12-29] MEDS: Budesonide/Formoterol 160/4.5 MDI IH SCH (09:57)
[2016-12-29] MEDS: Acetaminophen 325 MG TABLET PO PRN (10:42)
[2016-12-29] MEDS: Nystatin POWDER 30 GM BOTTLE TP SCH (10:43)
--- NOTE | 2016-12-29 13:21 | Physician Discharge Referral ---
Home Health/Hosp Referral Info Transfer to: Home Health Attending Provider: BEST Provider in Charge Post Discharge: PCP (DIAGNOSED WITH PNA, NEEDS HOME CARE) - Diagnosis (1) Fever and chills Status: Acute (2) COPD (chronic obstructive pulmonary disease) Status: Chronic (3) Abdominal pain Status: Acute (4) Lactic acidosis Status: Acute (5) Nonalcoholic hepatosteatosis Status: Acute (6) DVT prophylaxis Status: Acute (7) Guillain Humphries syndrome Status: Acute - Respiratory Orders Smoking Cessation: Smoking cessation has been advised. For more information, call the [place] Tobacco Quit Line at 2-783-[facility]-NOW. - Transfer Medications Home Medications: Pregabalin [Lyrica] 150 mg PO TID 01/03/16 [History] Quetiapine Fumarate [Seroquel] 600 mg PO HS 01/03/16 [History] Umeclidinium [place] [Incruse Ellipta] 1 puff IH DAILY 01/05/16 [History] Ranitidine HCl [Zantac] 150 mg PO BID #60 tablet 01/06/16 [Rx] [place] Carbonate 600 mg PO TID 01/17/16 [History] HYDROcodone/Acet 10/325 mg [[place] 10-325 mg] 1 tab PO Q6HR PRN #240 tablet 01/18 [Rx] Aspirin [Lo-Dose Aspirin EC] 81 mg PO DAILY 12/26/16 [History] Atorvastatin [Lipitor] 40 mg PO HS 12/26/16 [History] BuPROPion XL (24 HR) [Wellbutrin XL] 450 mg PO DAILY 12/26/16 [History] Budesonide/Formoterol 160/4.5 [Symbicort 160/4.5] 2 puff IH BIDR 12/26/16 [ History] Bupropion HCl [Wellbutrin Xl] 450 mg PO DAILY 12/26/16 [History] Buspirone HCl [Buspar] 15 mg PO QID 12/26/16 [History] Furosemide [Lasix] 20 mg PO DAILY 12/26/16 [History] Gentamicin Sulfate 1 drop LEFT EYE Q4H 12/26/16 [History] Ipratropium/Albuterol Sulfate [Combivent Respimat Inhal [place]] 1 puff IH QID [History] Melatonin 10 mg PO HS 12/26/16 [History] Mycophenolate Mofetil [Cellcept] 1,000 mg PO BID 12/26/16 [History] Nystatin POWDER [Nystop] 1 appl TP BID 12/26/16 [History] Ranitidine HCl [Zantac] 300 mg PO HS 12/26/16 [History] lamoTRIgine [Lamictal] 100 mg PO QAM 12/26/16 [History] lamoTRIgine [Lamictal] 200 mg PO HS 12/26/16 [History] Allergies/Adverse Reactions: Allergies cephalexin [From Keflex] Allergy (Verified 01/03/16 15:45) Hives divalproex sodium [From Depakote] Allergy (Verified 01/03/16 15:45) Hives ibuprofen Allergy (Verified 01/03/16 15:45) Hives Certification: Further, I certify that my clinical findings support that this patient is homebound (i.e. absences from home require considerable and taxing effort and are for medical reasons or congregational services or infrequently or short duration when for other reasons) because: Homebound Reason: Leaving home requires considerable and taxing effort due to condition Attestation: My signature below is to certify that this patient is under my care and that I, or nurse practitioner, or a physician's credit assistant working with me, has a face-to -face encounter with this patient.
--- NOTE | 2016-12-29 13:26 | Discharge Summary ---
Date of Encounter: 12/29/16 Time of Encounter: 13:24 - Discharge Diagnosis (1) Fever and chills Priority: Primary Status: Acute (2) COPD (chronic obstructive pulmonary disease) Priority: Secondary Status: Chronic Qualifiers: COPD type: chronic bronchitis Chronic bronchitis type: unspecified Qualified Code(s): J42 - Unspecified chronic bronchitis (3) Abdominal pain Priority: Secondary Status: Acute Qualifiers: Abdominal location: generalized Qualified Code(s): R10.84 - Generalized abdominal pain (4) Lactic acidosis Priority: Secondary Status: Acute (5) Nonalcoholic hepatosteatosis Priority: Secondary Status: Acute (6) DVT prophylaxis Priority: Secondary Status: Acute (7) Guillain Humphries syndrome Priority: Secondary Status: Acute (8) Pneumonia Priority: Primary Status: Acute Qualifiers: Laterality: left Lung location: lower lobe of lung Qualified Code(s): J18.1 - Lobar pneumonia, unspecified organism - Discharge Medications Prescriptions: levoFLOXacin [Levaquin] 500 mg PO DAILY #7 tablet Omeprazole [PriLOSEC] 40 mg PO DAILY@30 #30 capsule.dr Home Medications: Pregabalin [Lyrica] 150 mg PO TID 01/03/16 [History] Quetiapine Fumarate [Seroquel] 600 mg PO HS 01/03/16 [History] Umeclidinium [place] [Incruse Ellipta] 1 puff IH DAILY 01/05/16 [History] Ranitidine HCl [Zantac] 150 mg PO BID #60 tablet 01/06/16 [Rx] [place] Carbonate 600 mg PO TID 01/17/16 [History] HYDROcodone/Acet 10/325 mg [[place] 10-325 mg] 1 tab PO Q6HR PRN #240 tablet 01/18 [Rx] Aspirin [Lo-Dose Aspirin EC] 81 mg PO DAILY 12/26/16 [History] Atorvastatin [Lipitor] 40 mg PO HS 12/26/16 [History] BuPROPion XL (24 HR) [Wellbutrin XL] 450 mg PO DAILY 12/26/16 [History] Budesonide/Formoterol 160/4.5 [Symbicort 160/4.5] 2 puff IH BIDR 12/26/16 [ History] Bupropion HCl [Wellbutrin Xl] 450 mg PO DAILY 12/26/16 [History] Buspirone HCl [Buspar] 15 mg PO QID 12/26/16 [History] Furosemide [Lasix] 20 mg PO DAILY 12/26/16 [History] Gentamicin Sulfate 1 drop LEFT EYE Q4H 12/26/16 [History] Ipratropium/Albuterol Sulfate [Combivent Respimat Inhal [place]] 1 puff IH QID [History] Melatonin 10 mg PO HS 12/26/16 [History] Mycophenolate Mofetil [Cellcept] 1,000 mg PO BID 12/26/16 [History] Nystatin POWDER [Nystop] 1 appl TP BID 12/26/16 [History] Ranitidine HCl [Zantac] 300 mg PO HS 12/26/16 [History] lamoTRIgine [Lamictal] 100 mg PO QAM 12/26/16 [History] lamoTRIgine [Lamictal] 200 mg PO HS 12/26/16 [History] Heparin 5,000 unit SQ Q8HCO vial 12/29/16 [Rx] Ipratropium/Albuterol Neb [Duoneb] 3 ml IH [id number] inhsol 12/29/16 [Rx] Omeprazole [PriLOSEC] 40 mg PO DAILY@0630 #30 capsule. 12/29/16 [Rx] levoFLOXacin [Levaquin] 500 mg PO DAILY #7 tablet 12/29/16 [Rx] Allergies/Adverse Reactions: Allergies cephalexin [From Keflex] Allergy (Verified 01/03/16 15:45) Hives divalproex sodium [From Depakote] Allergy (Verified 01/03/16 15:45) Hives ibuprofen Allergy (Verified 01/03/16 15:45) Hives Procedures/tests Complete & Pending: Procedures Performed prior 72 hours Category Date Time Status ECG 12 lead ECG [ECG] Routine Y 12/26/16 20:25 Completed EKG [ECG 12 lead ECG] [ECG] Stat Y 12/26/16 20:07 Completed Date of admission: 12/26/16 16:08 Primary care physician: Heidi Bradley Consults: 12/26/16 18:47 Consult to Catering Director [CONS] Routine Reason for SW Consult: discharge planning 12/27/16 15:24 Consult to Invasive Line Access Team [CONS] Routine Reason for Consult: limited access, pt receiving Line Type: EPIV Discharging clinician: Kassanrda Hall Anticipated date of discharge: 12/29/16 - Patient Status Disposition: Home Health Service Condition: Fair Overall status at discharge: patient is progressing back to baseline - Discharge Instructions Instructions: Chronic Obstructive Pulmonary Disease (DC) Follow Up With: Heidi Brdaley CNP [Primary Care Provider] - - Diet and Activity Activity: resume usual activities as tolerated Diet: advance to your usual diet Interval History: Ms. Richardson is a 41 year old female with PMH Guillain [place], CAD, hyperlipidemia who presented to [facility] on 12/26/2016 with complaints of abdominal pain and nausea vomiting diarrhea and inability to tolerate by mouth. 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 Last time she got it is almost 4 weeks ago. She has a PICC line in the concern is that she is becoming septic with PICC line. Cultures are pending and she has already been started on IV vancomycin. Otherwise her white count is okay and her examination is quite benign today. She has continuous numbness in her lower extremity as expected. Essentially no evidence of infection during this hospitalization. No fever no focal symptoms on examination neither any white count. Chest x-ray showed some left lower lobe atelectasis that could be related to his transient subjective fever at home but here we could not get any rima training. She can be discharged home on Levaquin 500 milligrams daily and follow-up with her family doctor for any other concern. Hospital course: Ms. Richardson is a 41 year old female - Time Spent with Patient Total time spent providing and/or coordinating discharge services: Greater than 30 minutes - Constitutional Vitals: Temp Pulse Resp BP Pulse Ox 98.0 F 90 16 109/73 95 12/29/16 07:35 12/29/16 07:35 12/29/16 09:52 12/29/16 09:52 12/29/16 09:52 General appearance: Present: A&O X 3 - Head Head exam: Present: atraumatic, normocephalic - Eye Eye exam: Present: PERRL, conjuntiva pink, sclera anicteric Pupils: Present: PERRL - Neck Neck exam general surgery: Present: supple, trachea midline. Absent: lymphadenopathy - Respiratory Respiratory exam: Present: CTAB. Absent: accessory muscle use, rales, rhonchi, wheezes - Cardiovascular Cardiovascular exam: Present: RRR, +S1, +S2. Absent: diastolic murmur, gallop, rubs, systolic murmur - GI/Abdominal GI/Abdominal exam: Present: normal bowel sounds, soft, no peritoneal signs. Absent: distended, tenderness - Extremities Exam Extremities exam: Present: warm, radial pulses palpable and symetrical. Absent : calf tenderness, cyanotic, pedal edema - Neurological Exam Neurological exam: Present: CN II-XII intact, oriented X3, no focal deficits. Absent: pronater drift, facial droop, speech deficit - Skin Skin exam: Present: dry, intact
[2016-12-29] MEDS ORDERED: Aminoglycoside Consult 1 EACH MC ONE (16:08)
== END 2016-12-29 16:09 | disposition home health service (06) | DRG 190 ==
LOC: 3ANU 12:12 → EMEROO 12:12 → 3ANU 17:02
PROVIDERS: ADMIT Internal Medicine; ATTEND Internal Medicine

== ENCOUNTER 2021-06-30 00:44 | Observation (INO) ==
[2021-06-30] MEDS ORDERED: Acetaminophen 325 MG TABLET PO PRN (06:49)
[2021-06-30] MEDS ORDERED: *HR* Promethazine 25 MG/ML VIAL IM PRN (06:49)
[2021-06-30] MEDS ORDERED: Naloxone 0.4 MG/ML INJ IVP PRN (06:49)
[2021-06-30] MEDS ORDERED: Saliva Stimulant 44.3ml BOTTLE PO PRN (06:51)
[2021-06-30 09:42] LABS: Basophils % 0.3 %; Hematocrit 45.1 % (35.3-44.9); Hemoglobin 13.3 g/dL (11.5-15.4); Immature Granulocytes % 0.6 % (0-4); Lymphocytes # 1.3 K/mcL (0.6-4.6); Lymphocytes % 9.7 %; Mean Corpuscular HGB Conc 29.5 g/dL (31.6-35.5); Mean Corpuscular Hemoglobin 25.9 pg (28.0-33.3); Mean Corpuscular Volume 87.7 fL (83.0-100.0); Mean Platelet Volume 11.9 fL (9.4-12.4); Monocytes # 0.5 K/mcL (0.0-1.3); Monocytes % 3.3 %; Neutrophils # 11.9 K/mcL (1.6-8.9); Platelet Count 284 K/mcL (140-400); Red Blood Count 5.14 M/mcL (3.82-4.97); Red Cell Distribution Width 15.9 % (11.5-14.5); Segmented Neutrophils % 86.1 %; White Blood Count 13.9 K/mcL (4.3-11.1)
[2021-06-30 09:55] LABS: Heparin anti-factor XA UFH < 0.04 IU/mL (0.30-0.70); INR 1.2; Prothrombin Time 13.4 Seconds (9.4-12.1)
[2021-06-30 10:04] LABS: Alanine Aminotransferase 29 Units/L (7-52); Albumin 3.4 g/dL (3.5-5.7); Albumin/Globulin Ratio 1.1 (1.1-2.2); Alkaline Phosphatase 160 Units/L (34-104); Aspartate Amino Transferase 40 Units/L (13-39); BUN/Creatinine Ratio 7 (6-26); Bilirubin,Total 0.4 mg/dL (0.3-1.0); Blood Urea Nitrogen 6 mg/dL (6-20); Calcium 9.1 mg/dL (8.6-10.3); Carbon Dioxide 26 mEq/L (23-29); Chloride 112 mEq/L (98-107); Chol/HDL Ratio 7.3 (0-4.9); Cholesterol 190 mg/dL (< 200); Glucose 171 mg/dL (70-105); HDL Cholesterol 26 mg/dL (40-59); LDL Cholesterol,Calculated 128 mg/dL (< 100); Magnesium 2.5 mg/dL (1.6-2.6); Osmolality,Calculated 300 (280-300); Phosphorous 1.5 mg/dL (2.7-4.5); Potassium 4.3 mEq/L (3.5-5.1); Sodium 144 mEq/L (136-145); Total Protein 6.4 g/dL (6.4-8.9); Triglycerides 180 mg/dL (< 150); eGFR For African Americans > 60 (> 60); eGFR For Non-African Americans > 60 (> 60)
[2021-06-30] MEDS: Baclofen 10 MG TABLET PO SCH ×2 (15:06→21:10)
[2021-06-30] MEDS: *HR* OxyCODONE/APAP 5/325 TABLET PO PRN ×2 (15:06→21:14)
[2021-06-30] MEDS: lamoTRIgine 100 MG TABLET PO SCH (15:07)
[2021-06-30] MEDS: Pregabalin 75 MG CAPSULE PO SCH ×2 (15:07→21:10)
[2021-06-30] MEDS ORDERED: Insulin DETEMIR 100 UNIT/ML X5UNITS SUBQ SCH (21:00)
[2021-06-30] MEDS ORDERED: traZODone 50 MG TABLET PO SCH (21:00)
[2021-06-30] MEDS: Lithium Carbonate 300 MG CAPSULE PO SCH (22:33)
[2021-07-01] MEDS: *HR* OxyCODONE/APAP 5/325 TABLET PO PRN (04:58)
[2021-07-01 08:37] VITALS: BP 157/72; PULSE 67; TEMP 97.7; O2SAT 94
[2021-07-01] MEDS: Lithium Carbonate 300 MG CAPSULE PO SCH (08:39)
[2021-07-01] MEDS: Pregabalin 75 MG CAPSULE PO SCH (08:39)
[2021-07-01] MEDS: lamoTRIgine 100 MG TABLET PO SCH (08:39)
[2021-07-01] MEDS: Baclofen 10 MG TABLET PO SCH (08:39)
[2021-07-01] MEDS ORDERED: Aspirin Enteric Coated 81 MG Tablet PO SCH (09:00)
== END 2021-07-01 10:00 | disposition home or self-care (01) ==
LOC: 2NENU → SUATTDRO 05:44
PROVIDERS: ADMIT Internal Medicine; ATTEND Internal Medicine